=== PATIENT | male | born 1955 | race Caucasian/White ===

== ENCOUNTER 2016-07-02 21:02 | Observation (INO) | payer MEDICARE, OTHER ==
[~2016-07-02] VITALS: Ht 165.1 cm; Wt 61.1 kg
[2016-07-02 21:04] VITALS: BP 94/53; PULSE 99; RESP 21; TEMP 97.9; O2SAT 97
[2016-07-02] MEDS ORDERED: SODIUM CHLOR 0.9% 1000 ML INJ 1,000 ML IV SCH (21:09)
[2016-07-02 21:11] VITALS: BP 110/70; PULSE 75; RESP 18; O2SAT 99
[2016-07-02] MEDS ORDERED: SODIUM CHLORIDE 0.9% FLUSH 5 ML FLUSH IVF PRN (21:15)
[2016-07-02] MEDS ORDERED: DIPHTH/TETANUS/ACEL PERTUSSIS (BOOSTER) 0.5 ML VIAL/PFS IM ONE (21:15)
[2016-07-02 21:37] LABS: BASOPHIL % 0.6 % (0.0-2.0); EOSINOPHIL # 0.1 TH/MM3 (0-0.4); EOSINOPHIL % 1.2 % (0.0-4.0); HEMATOCRIT 40.4 % (39.0-51.0); HEMO FLAGS DIFF FINAL; LYMPH % 16.5 % (9.0-44.0); LYMPHOCYTE # 1.1 TH/MM3 (1.0-4.8); MEAN CELL VOLUME 94.6 FL (80.0-100.0); MEAN CORPUSCULAR HEMOGLOBIN 32.4 PG (27.0-34.0); MEAN CORPUSCULAR HGB CONC 34.3 % (32.0-36.0); MONO % 8.8 % (0.0-8.0); NEUT % 72.9 % (16.0-70.0); PLATELET COUNT 347 TH/MM3 (150-450); RED BLOOD COUNT 4.27 MIL/MM3 (4.50-5.90); WHITE BLOOD COUNT 6.8 TH/MM3 (4.0-11.0)
--- NOTE | 2016-07-02 21:38 | RADRPT ---
EXAM DATE/TIME: 07/02/2016 21:29 [facility] COMPARISON: No previous studies available for comparison. INDICATIONS : Syncopal episode today. MEDICAL HISTORY : None. SURGICAL HISTORY : None. ENCOUNTER: Initial ACUITY: 1 day PAIN SCORE: Non-responsive. LOCATION: Bilateral chest FINDINGS: A single view of the chest demonstrates the lungs to be symmetrically aerated without evidence of mas s, infiltrate or effusion. The cardiomediastinal contours are unremarkable. Osseous structures are intact. Left basilar atelectasis. CONCLUSION: Left basilar atelectasis. Yousif Degroot MD on July 02, 2016 at 21:37 Board Certified Radiologist. This report was verified electronically.
[2016-07-02 21:40] VITALS: BP 114/69; PULSE 82; RESP 18; O2SAT 97
[2016-07-02 21:46] LABS: APTT (PATIENT) 26.6 SEC (24.3-30.1); PROTHROMBIN TIME - PATIENT 10.8 SEC (9.8-11.6)
[2016-07-02 22:00] LABS: BICARBONATE 21.1 MEQ/L (21.0-32.0); POTASSIUM 3.3 MEQ/L (3.5-5.1)
--- NOTE | 2016-07-02 22:02 | RADRPT ---
EXAM DATE/TIME: 07/02/2016 21:33 [facility] COMPARISON: No previous studies available for comparison. INDICATIONS : Trauma; fall. RADIATION DOSE: 56.35 CTDIvol (mGy) MEDICAL HISTORY : Cerebral palsy SURGICAL HISTORY : None. ENCOUNTER: Initial ACUITY: 1 day PAIN SCALE: 4/10 LOCATION: cranial TECHNIQUE: Multiple contiguous axial images were obtained of the head. Using automated exposure control and adj ustment of the mA and/or kV according to patient size, radiation dose was kept as low as reasonably a chievable to obtain optimal diagnostic quality images. FINDINGS: There is no evidence of acute infarct, intracranial hemorrhage, or mass. There is mild ventriculomega ly with findings consistent with periventricular leukomalacia with volume loss of the white matter pa rticularly posteriorly. There is extensive calcification of the left globe. No fractures are seen. CONCLUSION: No acute disease. Yousif Degroot MD on July 02, 2016 at 21:59 Board Certified Radiologist. This report was verified electronically.
--- NOTE | 2016-07-02 22:05 | PD ---
HPI Chief Complaint: Fall Time Seen by Provider: 21:08 Travel History International Travel<30 days: No Contact w/Intl Traveler<30days: No Traveled to known affect area: No History of Present Illness HPI 61-year-old male presents status post fall sustaining a cut to the back of his head. He initially was hypotensive in route. Patient has had significant amount of alcohol and history is very limited. 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) Chemotherapy: No Congestive Heart Failure: No COPD: No Cerebrovascular Accident: No GERD: No Glaucoma: No Hepatitis: No Hiatal Hernia: No Hypertension: No Kidney Stones: No Musculoskeletal: Yes (pt has "mild cerebel palsy ".) Psychiatric: No Myocardial Infarction: No Radiation Therapy: No Renal Failure: No Seizures: No Sleep Apnea: No Thyroid Disease: No Ulcer: No ?: Past Surgical History Narrative Surgical Hip replacement on right by records AICD: No Genitourinary Surgery: No Pacemaker: No Social History Alcohol Use: Yes (everyday) Tobacco Use: Yes Substance Use: No Allergies-Medications (Allergen,Severity, Reaction): Coded Allergies: No Known Allergies (Verified Allergy, Unknown, 05/02/03) Review of Systems Except as stated in HPI: all other systems reviewed are Neg Physical Exam Narrative GENERAL: Well-nourished, well-developed patient. SKIN: Warm and dry. HEAD: Normocephalic and laceration to back of head EYES: No injection or drainage. ENT: No nasal drainage noted. NECK: Supple, trachea midline. CARDIOVASCULAR: Regular rate and rhythm RESPIRATORY: No increased effort. No accessory muscle use. GASTROINTESTINAL: Abdomen soft, non-tender, nondistended. NEUROLOGICAL: Awake, moves all extremities, slurred speech Data Data Last Documented VS Vital Signs Date Time Temp Pulse Resp B/P Pulse Ox O2 Delivery O2 Flow Rate FiO2 07/03/16 00:12 66 18 97/53 98 Room Air 07/02/16 21:04 97.9 Orders Basic Metabolic Panel (Bmp) (07/02/16 21:09) Complete Blood Count With Diff (07/02/16 21:09) Prothrombin Time / Inr (Pt) (07/02/16 21:09) Act Partial Throm Time (Ptt) (07/02/16 21:09) Alcohol (Ethanol) (07/02/16 21:09) Drug Screen, Random Urine (07/02/16 21:09) Chest, Single Ap (07/02/16 21:09) Ct Brain W/O Iv Contrast(Rout) (07/02/16 21:09) Ct Cerv Spine W/O Contrast (07/02/16 21:09) Iv Access Insert/Monitor (07/02/16 21:09) Ecg Monitoring (07/02/16 21:09) Oximetry (07/02/16 21:09) Nivf-Dar-Xveuzu (Booster) Inj (Boostrix (07/02/16 21:15) Sodium Chlor 0.9% 1000 Ml Inj (Ns 1000 M (07/02/16 21:09) Sodium Chloride 0.9% Flush (Ns Flush) (07/02/16 21:15) Urinalysis - C+S If Indicated (07/02/16 21:13) Lactic Acid (07/02/16 21:13) Electrocardiogram (07/02/16 12:10) Blood Culture (07/02/16 23:19) Sodium Chlor 0.9% 1000 Ml Inj (Ns 1000 M (07/02/16 23:30) Cath For Specimen (07/02/16 23:19) Ceftriaxone Inj (Rocephin Inj) (07/02/16 23:26) Azithromycin Inj (Zithromax Inj) (07/02/16 23:26) Hepatic Functional Panel (07/03/16 00:06) Admit Order (Ed Use Only) (07/03/16 00:17) Labs Laboratory Tests Test 07/02/16 07/02/16 07/02/16 21:14 22:20 23:45 White Blood Count 6.8 TH/MM3 Red Blood Count 4.27 MIL/MM3 Hemoglobin 13.8 GM/DL Hematocrit 40.4 % Mean Corpuscular Volume 94.6 FL Mean Corpuscular Hemoglobin 32.4 PG Mean Corpuscular Hemoglobin 34.3 % Concent Red Cell Distribution Width 14.0 % Platelet Count 347 TH/MM3 Mean Platelet Volume 7.3 FL Neutrophils (%) (Auto) 72.9 % Lymphocytes (%) (Auto) 16.5 % Monocytes (%) (Auto) 8.8 % Eosinophils (%) (Auto) 1.2 % Basophils (%) (Auto) 0.6 % Neutrophils # (Auto) 5.0 TH/MM3 Lymphocytes # (Auto) 1.1 TH/MM3 Monocytes # (Auto) 0.6 TH/MM3 Eosinophils # (Auto) 0.1 TH/MM3 Basophils # (Auto) 0.0 TH/MM3 CBC Comment DIFF FINAL Differential Comment Prothrombin Time 10.8 SEC Prothromb Time International 1.0 RATIO Ratio Activated Partial 26.6 SEC Thromboplast Time Sodium Level 138 MEQ/L Potassium Level 3.3 MEQ/L Chloride Level 102 MEQ/L Carbon Dioxide Level 21.1 MEQ/L Anion Gap 15 MEQ/L Blood Urea Nitrogen 9 MG/DL Creatinine 1.03 MG/DL Estimat Glomerular Filtration 73 ML/MIN Rate Random Glucose 127 MG/DL Calcium Level 7.7 MG/DL Ethyl Alcohol Level 230 MG/DL Total Bilirubin 0.2 MG/DL Direct Bilirubin 0.1 MG/DL Indirect Bilirubin 0.1 MG/DL Aspartate Amino Transf 15 U/L (AST/SGOT) Alanine Aminotransferase 16 U/L (ALT/SGPT) Alkaline Phosphatase 57 U/L Total Protein 6.2 GM/DL Albumin 3.3 GM/DL Lactic Acid Level 3.5 mmol/L Urine Color YELLOW Urine Turbidity CLEAR Urine pH 5.5 Urine Specific [place] 1.007 Urine Protein NEG mg/dL Urine Glucose (UA) NEG mg/dL Urine Ketones NEG mg/dL Urine Occult Blood NEG Urine Nitrite NEG Urine Bilirubin NEG Urine Urobilinogen LESS THAN 2.0 MG/DL Urine Leukocyte Esterase NEG Urine RBC 1 /hpf Urine WBC 1 /hpf Urine Squamous Epithelial <1 /hpf Cells Urine Hyaline Casts 1 /lpf Microscopic Urinalysis Comment CULT NOT INDICATED Urine Opiates Screen NEG Urine Barbiturates Screen NEG Urine Amphetamines Screen NEG Urine Benzodiazepines Screen NEG Urine Cocaine Screen NEG Urine Cannabinoids Screen POS MDM Medical Decision Making Medical Screen Exam Complete: Yes Emergency Medical Condition: Yes Medical Record Reviewed: Yes (past history confirmed on prior records) Interpretation(s) EKG is sinus rhythm without STEMI criteria but limited with underlying artifact CBC & BMP Diagram 07/02/16 21:14 Last [address] 07/02/16 2134 Signed Impressions: Service Date/Time: Saturday, July 02, 2016 21:33 - CONCLUSION: No acute disease. Yousif Degroot MD Chest X-Ray 07/02/162108 Signed Impressions: Service Date/Time: Saturday, July 02, 2016 21:29 - CONCLUSION: Left basilar atelectasis. Yousif Degroot MD Cervical Spine CT 07/02/162108 Signed Impressions: Service Date/Time: Saturday, July 02, 2016 21:33 - CONCLUSION: Multilevel degenerative changes are seen without evidence of acute fracture or listhesis. Emphysema. Yousif Degroot MD Differential Diagnosis Intracranial injury, fracture, anemia, UTI, alcohol abuse, coingestion Narrative Course Will check blood work, imaging and dose with IV fluids and reevaluate Given elevated lactate and hypotension will place on Rocephin and azithromycin for possible left base infiltrate versus atelectasis given everything else shows no signs of infection 97/53 on recheck, will repeat fluids and admit, patient denies complaints and apologetic Sepsis Criteria SIRS Criteria (2 or more): Heart rate over 90, RR > 20 or PaCO2 < 32 Severe Sepsis (+one): Lactate >2 Physician Communication Physician Communication dr vazquez agrees to observation Diagnosis Primary Impression: Fall Qualified Code: W19.XXXA - Fall, initial encounter Additional Impressions: Alcohol intoxication Qualified Code: F10.120 - Alcohol intoxication, uncomplicated Lactic acidosis Hypocalcemia Hypokalemia Hypotension Qualified Code: I95.9 - Hypotension, unspecified hypotension type Admitting Information Admitting Physician Requests: Observation Yudi Gonsales MD Jul 02, 2016 22:05
--- NOTE | 2016-07-02 22:07 | RADRPT ---
EXAM DATE/TIME: 07/02/2016 21:33 [facility] COMPARISON: No previous studies available for comparison. INDICATIONS : Trauma; fall. RADIATION DOSE: 36.35 CTDIvol (mGy) MEDICAL HISTORY : Cerebral palsy SURGICAL HISTORY : None. ENCOUNTER: Initial ACUITY: 1 day PAIN SCALE: 5/10 LOCATION: neck TECHNIQUE: Volumetric scanning of the cervical spine was performed. Multiplanar reconstructions in the sagittal, coronal and oblique axial planes were performed. Using automated exposure control and adjustment o f the mA and/or kV according to patient size, radiation dose was kept as low as reasonably achievable to obtain optimal diagnostic quality images. FINDINGS: Normal alignment. No prevertebral soft tissue swelling or compression deformity. Odontoid process is intact. Lateral masses of C1 align properly with C2. There is moderate disc space narrowing at C4-5 t hrough C6-7 with multilevel osteophytosis and facet hypertrophic changes. No fractures are seen. Mult ilevel uncovertebral hypertrophy identified. There is severe foraminal stenosis at C3-4 on the right and moderate foraminal stenosis on the left. At C4-5 there is severe right, moderate left foraminal n arrowing. At C5-6 there is severe bilateral foraminal stenosis. There are emphysematous changes noted . There is moderate canal stenosis at C3-4 and C4-5 with severe canal narrowing at C5-6. CONCLUSION: Multilevel degenerative changes are seen without evidence of acute fracture or listhesis. Emphysema. Yousif Degroot MD on July 02, 2016 at 22:04 Board Certified Radiologist. This report was verified electronically.
--- NOTE | 2016-07-02 22:40 | PD ---
Physical Exam Date Seen by Provider: Jul 02, 2016 Narrative For full history and physical examination please see previous provider's note. I was asked to repair laceration to patient's scalp. Data Data Last Documented VS Vital Signs Date Time Temp Pulse Resp B/P Pulse Ox O2 Delivery O2 Flow Rate FiO2 07/02/16 21:40 82 18 114/69 97 Room Air 07/02/16 21:04 97.9 Orders Basic Metabolic Panel (Bmp) (07/02/16 21:09) Complete Blood Count With Diff (07/02/16 21:09) Prothrombin Time / Inr (Pt) (07/02/16 21:09) Act Partial Throm Time (Ptt) (07/02/16 21:09) Alcohol (Ethanol) (07/02/16 21:09) Drug Screen, Random Urine (07/02/16 21:09) Chest, Single Ap (07/02/16 21:09) Ct Brain W/O Iv Contrast(Rout) (07/02/16 21:09) Ct Cerv Spine W/O Contrast (07/02/16 21:09) Iv Access Insert/Monitor (07/02/16 21:09) Ecg Monitoring (07/02/16 21:09) Oximetry (07/02/16 21:09) Ztly-Kku-Szynzf (Booster) Inj (Boostrix (07/02/16 21:15) Sodium Chlor 0.9% 1000 Ml Inj (Ns 1000 M (07/02/16 21:09) Sodium Chloride 0.9% Flush (Ns Flush) (07/02/16 21:15) Urinalysis - C+S If Indicated (07/02/16 21:13) Lactic Acid (07/02/16 21:13) Electrocardiogram (07/02/16 12:10) Labs Laboratory Tests Test 07/02/16 21:14 White Blood Count 6.8 TH/MM3 Red Blood Count 4.27 MIL/MM3 Hemoglobin 13.8 GM/DL Hematocrit 40.4 % Mean Corpuscular Volume 94.6 FL Mean Corpuscular Hemoglobin 32.4 PG Mean Corpuscular Hemoglobin 34.3 % Concent Red Cell Distribution Width 14.0 % Platelet Count 347 TH/MM3 Mean Platelet Volume 7.3 FL Neutrophils (%) (Auto) 72.9 % Lymphocytes (%) (Auto) 16.5 % Monocytes (%) (Auto) 8.8 % Eosinophils (%) (Auto) 1.2 % Basophils (%) (Auto) 0.6 % Neutrophils # (Auto) 5.0 TH/MM3 Lymphocytes # (Auto) 1.1 TH/MM3 Monocytes # (Auto) 0.6 TH/MM3 Eosinophils # (Auto) 0.1 TH/MM3 Basophils # (Auto) 0.0 TH/MM3 CBC Comment DIFF FINAL Differential Comment Prothrombin Time 10.8 SEC Prothromb Time International 1.0 RATIO Ratio Activated Partial 26.6 SEC Thromboplast Time Sodium Level 138 MEQ/L Potassium Level 3.3 MEQ/L Chloride Level 102 MEQ/L Carbon Dioxide Level 21.1 MEQ/L Anion Gap 15 MEQ/L Blood Urea Nitrogen 9 MG/DL Creatinine 1.03 MG/DL Estimat Glomerular Filtration 73 ML/MIN Rate Random Glucose 127 MG/DL Calcium Level 7.7 MG/DL Ethyl Alcohol Level 230 MG/DL MDM Medical Record Reviewed: Yes Supervised Visit with PETE: Yes Procedures Procedure Narrative LACERATION LOCATION: Left scalp LENGTH: 1 1/2 cm NUMBER OF STITCHES/LEIA: 3 leia REPAIR: The area of the laceration was prepped with Betadine and sterilely draped. The wound was copiously irrigated and explored without evidence of foreign body, tendon injury or neurovascular injury. The wound was closed using leia. This was a 1 layer repair. The patient was advised to keep the dressing clean and dry. Patient tolerated the procedure well. Gertrudis Harvey Jul 02, 2016 22:40
[2016-07-02] MEDS ORDERED: cefTRIAXone INJ 2,000 MG in SODIUM CHLORIDE 0.9% INJ 100 ML IV STA (23:26)
[2016-07-02] MEDS ORDERED: AZITHROMYCIN INJ 500 MG in SODIUM CHLOR 0.9% 250 ML INJ 250 ML IV STA (23:26)
[2016-07-02] MEDS ORDERED: SODIUM CHLOR 0.9% 1000 ML INJ 1,000 ML IV ONE (23:30)
[2016-07-03] VITALS (7 sets, daily range): BP systolic 84–124; BP diastolic 53–77; PULSE 58–75; RESP 17–18; TEMP 96.4–98.1; O2SAT 93–98
[2016-07-03 00:01] LABS: BLOOD, URINE NEG (NEG); GLUCOSE,URINE NEG (NEG); HYALINE CAST, URINE 1 /lpf (RARE); KETONE, URINE NEG (NEG); NITRITE,URINE NEG (NEG); PH, URINE 5.5 (5.0-8.5); SQUAMOUS EPITHELIAL CELL URINE <1 /hpf (0-5); URINE COLOR YELLOW (YELLW/STRAW)
[2016-07-03 00:03] LABS: COMMENT (UR) CULT NOT INDICATED; CULTURE IF INDICATED CULT NOT INDICATED
[2016-07-03 00:07] LABS: AMPHETAMINE, URINE NEG (NEG); BARBITURATES, URINE NEG (NEG); COCAINE, URINE NEG (NEG)
[2016-07-03] MEDS ORDERED: ONDANSETRON HCL 4 MG/2 ML VIAL IVP PRN (00:30)
[2016-07-03] MEDS ORDERED: CALCIUM GLUCONATE 10% 1 GM/10 ML VIAL IV PUSH ONE (00:30)
[2016-07-03] MEDS ORDERED: HALOPERIDOL LACTATE 5 MG/ML AMP IM PRN (00:30)
[2016-07-03] MEDS ORDERED: ACETAMINOPHEN 325 MG TAB PO PRN (00:30)
[2016-07-03] MEDS ORDERED: SODIUM CHLORIDE 0.9% FLUSH 5 ML FLUSH FLUSH PRN (00:30)
[2016-07-03] MEDS ORDERED: BISACODYL 10 MG SUPP PR PRN (00:30)
[2016-07-03] MEDS ORDERED: LORazepam 2 MG TAB PO PRN (00:30)
[2016-07-03] MEDS ORDERED: POTASSIUM CHLORIDE 20 MEQ CONTROLLED RELEASE TAB PO ONE (00:30)
[2016-07-03] MEDS ORDERED: FLUMAZENIL 0.5 MG/5 ML VIAL IV PUSH PRN (00:30)
[2016-07-03] MEDS ORDERED: LORazepam 2 MG/ML VIAL IV PUSH PRN ×4 (00:30)
[2016-07-03] MEDS ORDERED: LORazepam 1 MG TAB PO PRN (00:30)
[2016-07-03] MEDS ORDERED: CALCIUM GLUCONATE INJ 1 GM in SODIUM CHLORIDE 0.9% INJ 100 ML IV ONE (00:45)
[2016-07-03 01:45] LABS: INDIRECT BILIRUBIN 0.1 MG/DL (0.0-0.8); TOTAL BILIRUBIN ADULT 0.2 MG/DL (0.2-1.0)
[2016-07-03] MEDS: MULTIVITAMIN INJ 10 ML, FOLIC ACID INJ 1 MG in SODIUM CHLORID 0.9% 500 ML INJ 500 ML IV SCH (02:03)
--- NOTE | 2016-07-03 02:49 | HHI.HP ---
[facility] Horacio Verma M.D. Admission Diagnosis lactic acidosis, fall Diagnoses: (1) Fall Diagnosis: Principal (2) Alcohol abuse Diagnosis: Principal (3) Alcohol intoxication Diagnosis: Principal (4) Lactic acidosis Diagnosis: Principal (5) Hypocalcemia Diagnosis: Principal (6) Hypokalemia Diagnosis: Principal Travel History International Travel<30 Days: No Contact w/Intl Traveler <30 Da: No Traveled to Known Affected Are: No History of Present Illness This is a 61-year-old male with a PMH of Alcohol Abuse, Cerebral Palsy, h/o WPW/ SVT and Tobacco Abuse who was brought to the ER by EMS after fall w/ head injury while intoxicated. Per report, neighbor called EMS after pt sustained fall and hit his head. Pt unable to provide much history as acutely intoxicated. On arrival, BP 94/53, HR 99, O2 sat 97% on RA, Afebrile, s/p IVF w / BP 114/69, HR 82. CBC essentially unremarkable. K+ 3.3. GFR 73. Lactic Acid 3.5. Calcium 7.7. U/a negative. Urine Drug Screen positive for Marijuana. Alcohol 230. CT Head with no acute findings. CT C-spine with multilevel degenerative changes, no acute fracture. CXR with left basilar atelectasis. Review of Systems Except as stated in HPI: all other systems reviewed are Neg ROS: 14 point review of systems otherwise negative. Past Family Social History Past Medical History PMH: Alcohol Abuse, Cerebral Palsy, h/o WPW/SVT and Tobacco Abuse Past Surgical History PAST SURGICAL HISTORY: Hip Replacement Allergies: Coded Allergies: No Known Allergies (Verified Allergy, Unknown, 05/02/03) Family History PAST FAMILY HISTORY: Reviewed. No h/o DM or CAD Social History PAST SOCIAL HISTORY: Drinks daily, positive for tobacco abuse. Urine Drug screen positive for marijuana. Physical Exam Vital Signs Vital Signs Date Time Temp Pulse Resp B/P Pulse Ox O2 Delivery O2 Flow Rate FiO2 07/03/16 02:34 96.4 67 18 84/65 97 07/03/16 00:12 66 18 97/53 98 Room Air 07/02/16 21:40 82 18 114/69 97 Room Air 07/02/16 21:11 75 18 110/70 99 Room Air 07/02/16 21:04 97.9 99 21 94/53 97 Physical Exam PE: GENERAL: Middle-aged male in no acute distress. Acutely intoxicated. HEENT: PERRLA, EOMI. No scleral icterus or conjunctival pallor. No lid lag or facial droop. Posterior head laceration. CARDIOVASCULAR: Regular rate and rhythm. No obvious murmurs to auscultation. No chest tenderness to palpation. RESPIRATORY: No obvious rhonchi or wheezing. Clear to auscultation. Breath sounds equal bilaterally. GASTROINTESTINAL: Abdomen soft, non-tender, nondistended. BS normal. MUSCULOSKELETAL: Extremities without clubbing, cyanosis, or edema. No obvious deformities. NEUROLOGICAL: Intoxicated, arousable. No focal neurologic deficits. Moving both upper and lower extremities spontaneously. Laboratory Laboratory Tests Test 07/02/16 07/02/16 07/02/16 21:14 22:20 23:45 White Blood Count 6.8 Red Blood Count 4.27 Hemoglobin 13.8 Hematocrit 40.4 Mean Corpuscular Volume 94.6 Mean Corpuscular Hemoglobin 32.4 Mean Corpuscular Hemoglobin 34.3 Concent Red Cell Distribution Width 14.0 Platelet Count 347 Mean Platelet Volume 7.3 Neutrophils (%) (Auto) 72.9 Lymphocytes (%) (Auto) 16.5 Monocytes (%) (Auto) 8.8 Eosinophils (%) (Auto) 1.2 Basophils (%) (Auto) 0.6 Neutrophils # (Auto) 5.0 Lymphocytes # (Auto) 1.1 Monocytes # (Auto) 0.6 Eosinophils # (Auto) 0.1 Basophils # (Auto) 0.0 CBC Comment DIFF FINAL Differential Comment Prothrombin Time 10.8 Prothromb Time International 1.0 Ratio Activated Partial 26.6 Thromboplast Time Sodium Level 138 Potassium Level 3.3 Chloride Level 102 Carbon Dioxide Level 21.1 Anion Gap 15 Blood Urea Nitrogen 9 Creatinine 1.03 Estimat Glomerular Filtration 73 Rate Random Glucose 127 Calcium Level 7.7 Ethyl Alcohol Level 230 Total Bilirubin 0.2 Direct Bilirubin 0.1 Indirect Bilirubin 0.1 Aspartate Amino Transf 15 (AST/SGOT) Alanine Aminotransferase 16 (ALT/SGPT) Alkaline Phosphatase 57 Total Protein 6.2 Albumin 3.3 Lactic Acid Level 3.5 Urine Color YELLOW Urine Turbidity CLEAR Urine pH 5.5 Urine Specific [place] 1.007 Urine Protein NEG Urine Glucose (UA) NEG Urine Ketones NEG Urine Occult Blood NEG Urine Nitrite NEG Urine Bilirubin NEG Urine Urobilinogen LESS THAN 2.0 Urine Leukocyte Esterase NEG Urine RBC 1 Urine WBC 1 Urine Squamous Epithelial <1 Cells Urine Hyaline Casts 1 Microscopic Urinalysis Comment CULT NOT INDICATED Urine Opiates Screen NEG Urine Barbiturates Screen NEG Urine Amphetamines Screen NEG Urine Benzodiazepines Screen NEG Urine Cocaine Screen NEG Urine Cannabinoids Screen POS Date/Time Procedure Status Source Growth 07/02/16 23:50 Aerobic Blood Culture Received Blood Peripheral Pending 07/02/16 23:50 Anaerobic Blood Culture Received Blood Peripheral Pending Result Diagram: 07/02/16211307/02/162113 Assessment and Plan Problem List: (1) Fall ICD Code: W19.XXXA Status: Acute (2) Alcohol abuse ICD Code: F10.10 Status: Acute (3) Alcohol intoxication ICD Code: F10.129 Status: Acute (4) Lactic acidosis ICD Code: E87.2 Status: Acute (5) Hypokalemia ICD Code: E87.6 Status: Acute (6) Hypocalcemia ICD Code: E83.51 Status: Acute Assessment and Plan A/P: 1. Fall: s/p fall while intoxicated w/ reported head trauma, no LOC, CT Head w / no acute findings, CT C-Spine w/ no acute fracture, images reviewed by me. 2. Alcohol Abuse: w/ Acute Alcohol Intoxication. Alcohol 290. Seizure Precautions, CIWA, MVT/Thiamine/Folate replacement. 3. Lactic Acidosis: Lactate 3.5, likely secondary to dehydration/alcohol abuse , no signs of infection to suspect sepsis. Afebrile, no leukocytosis. IVF, repeat Lactic Acid in am. 4. Hypokalemia: K+ 3.3, will replace and recheck in am. 5. Hypocalcemia: Ca 7.7, will replace, recheck labs in am. 6. DVT Prophylaxis: SCD/Teds. 7. Social work for d/c planning as needed. 8. Case discussed w/ ER physician at length. Polly Campos MD Jul 03, 2016 02:49
[2016-07-03] MEDS: THIAMINE INJ 100 MG in SODIUM CHLORIDE 0.9% INJ 100 ML IV SCH (06:36)
[2016-07-03 07:34] LABS: AUTOMATED NEUTROPHIL # 4.2 TH/MM3 (1.8-7.7); BASOPHIL % 0.8 % (0.0-2.0); EOSINOPHIL # 0.1 TH/MM3 (0-0.4); EOSINOPHIL % 2.1 % (0.0-4.0); HEMATOCRIT 39.8 % (39.0-51.0); HEMO FLAGS DIFF FINAL; LYMPH % 20.6 % (9.0-44.0); LYMPHOCYTE # 1.3 TH/MM3 (1.0-4.8); MEAN CORPUSCULAR HEMOGLOBIN 32.5 PG (27.0-34.0); MEAN CORPUSCULAR HGB CONC 34.2 % (32.0-36.0); MONO % 9.7 % (0.0-8.0); NEUT % 66.8 % (16.0-70.0); PLATELET COUNT 299 TH/MM3 (150-450); RED CELL DISTRIBUTION WIDTH 13.8 % (11.6-17.2); WHITE BLOOD COUNT 6.3 TH/MM3 (4.0-11.0)
[2016-07-03 08:13] LABS: ALKALINE PHOSPHATASE 63 U/L (45-117); ALT (GPT) 16 U/L (12-78); ANION GAP 11 MEQ/L (5-15); AST (GOT) 16 U/L (15-37); BICARBONATE 21.9 MEQ/L (21.0-32.0); BLOOD UREA NITROGEN 6 MG/DL (7-18); CHLORIDE 111 MEQ/L (98-107); GLOMERULAR FILTRATION RATE 96 ML/MIN (>89); SODIUM (NA) 144 MEQ/L (136-145); TOTAL BILIRUBIN ADULT 0.2 MG/DL (0.2-1.0)
[2016-07-03] MEDS: SODIUM CHLORIDE 0.9% FLUSH 5 ML FLUSH FLUSH SCH ×2 (08:27→22:07)
--- NOTE | 2016-07-03 15:56 | EKG ---
Date Performed: 07/02/2016 Time Performed: 21:10:53 PTAGE: 61 years EKG: Sinus rhythm WITH FIRST DEGREE AV BLOCK T-WAVES IN INFERIOR LEADS HAS IMPROVED ABNORMAL ECG PREVIOUS TRACING : 05/28/2003 05.31 DOCTOR: Harjeet Avalos Interpretating Date/Time 07/03/2016 15:55:53
[2016-07-03] MEDS: REMOVE OLD NICODERM (NICOTINE) PATCH TD SCH (21:00)
[2016-07-03] MEDS: NICOTINE 14 MG/24 HR PATCH TD SCH (22:07)
[2016-07-04] MEDS: MULTIVITAMIN INJ 10 ML, FOLIC ACID INJ 1 MG in SODIUM CHLORID 0.9% 500 ML INJ 500 ML IV SCH (00:10)
[2016-07-04] MEDS: THIAMINE INJ 100 MG in SODIUM CHLORIDE 0.9% INJ 100 ML IV SCH (04:24)
[2016-07-04 08:00] VITALS: BP 109/73; PULSE 65; RESP 18; TEMP 97.1; O2SAT 96
[2016-07-04 08:30] LABS: BICARBONATE 26.6 MEQ/L (21.0-32.0); POTASSIUM 4.2 MEQ/L (3.5-5.1)
[2016-07-04] MEDS: NICOTINE 14 MG/24 HR PATCH TD SCH (08:40)
[2016-07-04] MEDS: SODIUM CHLORIDE 0.9% FLUSH 5 ML FLUSH FLUSH SCH ×2 (08:40→21:41)
[2016-07-04 12:00] VITALS: BP 112/71; PULSE 63; RESP 18; TEMP 96.9; O2SAT 94
[2016-07-04 16:00] VITALS: BP 133/83; PULSE 61; RESP 18; TEMP 96.9; O2SAT 95
--- NOTE | 2016-07-04 18:46 | HHI.PR ---
Subjective Remarks Follow up on status post fall and alcoholic intoxication Patient resting in bed stated he feels better but he still wobbly when he tried to go to the bathroom I discussed with the nurse, will consult PT OT Objective Vitals Vital Signs Date Time Temp Pulse Resp B/P Pulse Ox O2 Delivery O2 Flow Rate FiO2 07/04/16 18:00 16 07/04/16 16:00 96.9 61 18 133/83 95 07/04/16 12:00 96.9 63 18 112/71 94 07/04/16 08:00 97.1 65 18 109/73 96 07/03/16 23:10 96.8 58 17 118/65 94 07/03/16 20:00 97.5 66 17 105/70 93 I/O 07/03/16 07/03/16 07/03/16 07/04/16 07/04/16 07/04/16 07:00 15:00 23:00 07:00 15:00 23:00 Intake Total 1920 ml 480 ml 720 ml Output Total 1200 ml 1000 ml 500 ml 500 ml Balance -1200 ml 920 ml -20 ml 220 ml Intake Oral 1920 ml 480 ml 720 ml Output Urine Total 1200 ml 1000 ml 500 ml 500 ml # Voids 3 1 # Bowel Movements 2 0 1 Result Diagram: 07/03/16 0716 07/04/16 0716 Objective Remarks GENERAL: This is a well-nourished, well-developed patient, in no apparent distress. SKIN: No rashes, warm and dry HEAD: Atraumatic. Normocephalic. EYES: Pupils equal round and reactive. Extraocular motions intact. No scleral icterus. ENT: Nose without bleeding, or drainage, Airway patent. NECK: Trachea midline. Supple CARDIOVASCULAR: Regular rate and rhythm without murmurs, gallops, or rubs. RESPIRATORY: Fair air entry bilaterally. No wheezes, rales, or rhonchi. GASTROINTESTINAL: Abdomen soft, non-tender, nondistended. Positive bowel sounds MUSCULOSKELETAL: Extremities without clubbing, cyanosis, or edema. Pedal pulses appreciated NEUROLOGICAL: Awake and alert. Moves all extremity. Normal speech.no focal neurological deficit A/P Problem List: (1) Fall ICD Code: W19.XXXA Status: Acute (2) Alcohol abuse ICD Code: F10.10 Status: Acute (3) Alcohol intoxication ICD Code: F10.129 Status: Acute (4) Lactic acidosis ICD Code: E87.2 Status: Acute (5) Hypokalemia ICD Code: E87.6 Status: Acute (6) Hypocalcemia ICD Code: E83.51 Status: Acute Assessment and Plan 1. Fall: s/p fall while intoxicated w/ reported head trauma, no LOC, CT Head w / no acute findings, CT C-Spine w/ no acute fracture, 2. Alcohol Abuse: w/ Acute Alcohol Intoxication. Alcohol 290. Seizure Precautions, CIWA, MVT/Thiamine/Folate replacement. Consult PT OT 3. Lactic Acidosis: Resolved, initially Lactate 3.5, likely secondary to dehydration/alcohol abuse, no signs of infection to suspect sepsis. Afebrile, no leukocytosis. IVF, 4. Hypokalemia: Status post replacement, monitor BMP and replace as needed 5. Hypocalcemia: Ca 7.7, discuss replacement recheck labs in am. 6. DVT Prophylaxis: SCD/Teds. Discharge Planning In a.m. if stable Problem Qualifiers (1) Fall: Qualified Code: W19.XXXA - Fall, initial encounter (2) Alcohol intoxication: Qualified Code: F10.120 - Alcohol intoxication, uncomplicated Tonya Fnuk MD Jul 04, 2016 18:46
[2016-07-04 20:00] VITALS: BP 142/82; PULSE 61; RESP 18; TEMP 97.2; O2SAT 97
[2016-07-04] MEDS: REMOVE OLD NICODERM (NICOTINE) PATCH TD SCH (21:00)
[2016-07-05] VITALS: BP 142/87; PULSE 61; RESP 17; TEMP 97.4; O2SAT 96
[2016-07-05] MEDS: THIAMINE INJ 100 MG in SODIUM CHLORIDE 0.9% INJ 100 ML IV SCH (01:56)
[2016-07-05] MEDS: MULTIVITAMIN INJ 10 ML, FOLIC ACID INJ 1 MG in SODIUM CHLORID 0.9% 500 ML INJ 500 ML IV SCH (01:56)
[2016-07-05 04:00] VITALS: BP 121/73; PULSE 67; RESP 16; TEMP 96.7; O2SAT 97
[2016-07-05 08:00] VITALS: BP 110/71; PULSE 71; RESP 18; TEMP 96.5; O2SAT 97
[2016-07-05] MEDS ORDERED: VITA100T2 PO (08:38)
[2016-07-05] MEDS ORDERED: FOLI5CAP PO (08:38)
--- NOTE | 2016-07-05 08:41 | HHI.PR ---
Subjective Remarks Patient is doing well, feeling more stable today we'll proceed with discharge, he was advised about alcohol abstinence Objective Vitals Vital Signs Date Time Temp Pulse Resp B/P Pulse Ox O2 Delivery O2 Flow Rate FiO2 07/05/16 04:00 96.7 67 16 121/73 97 07/05/16 00:00 97.4 61 17 142/87 96 07/04/16 20:00 97.2 61 18 142/82 97 07/04/16 18:00 16 07/04/16 16:00 96.9 61 18 133/83 95 07/04/16 12:00 96.9 63 18 112/71 94 I/O 07/04/16 07/04/16 07/04/16 07/05/16 07/05/16 07/05/16 07:00 15:00 23:00 07:00 15:00 23:00 Intake Total 480 ml 960 ml 240 ml Output Total 500 ml 1100 ml Balance -20 ml -140 ml 240 ml Intake Oral 480 ml 960 ml 240 ml Output Urine Total 500 ml 1100 ml # Voids 1 2 # Bowel Movements 0 1 Result Diagram: 07/03/16 0716 07/04/16 0716 Objective Remarks GENERAL: This is a well-nourished, well-developed patient, in no apparent distress. SKIN: No rashes, warm and dry HEAD: Atraumatic. Normocephalic. EYES: Pupils equal round and reactive. Extraocular motions intact. No scleral icterus. ENT: Nose without bleeding, or drainage, Airway patent. NECK: Trachea midline. Supple CARDIOVASCULAR: Regular rate and rhythm without murmurs, gallops, or rubs. RESPIRATORY: Fair air entry bilaterally. No wheezes, rales, or rhonchi. GASTROINTESTINAL: Abdomen soft, non-tender, nondistended. Positive bowel sounds MUSCULOSKELETAL: Extremities without clubbing, cyanosis, or edema. Pedal pulses appreciated NEUROLOGICAL: Awake and alert. Moves all extremity. Normal speech.no focal neurological deficit A/P Problem List: (1) Fall ICD Code: W19.XXXA Status: Acute (2) Alcohol abuse ICD Code: F10.10 Status: Acute (3) Alcohol intoxication ICD Code: F10.129 Status: Acute (4) Lactic acidosis ICD Code: E87.2 Status: Acute (5) Hypokalemia ICD Code: E87.6 Status: Acute (6) Hypocalcemia ICD Code: E83.51 Status: Acute Assessment and Plan 1. Fall: s/p fall while intoxicated w/ reported head trauma, no LOC, CT Head w / no acute findings, CT C-Spine w/ no acute fracture, 2. Alcohol Abuse: w/ Acute Alcohol Intoxication. Alcohol 290. Seizure Precautions, CIWA, MVT/Thiamine/Folate replacement. Consult PT OT 3. Lactic Acidosis: Resolved, initially Lactate 3.5, likely secondary to dehydration/alcohol abuse, no signs of infection to suspect sepsis. Afebrile, no leukocytosis. IVF, 4. Hypokalemia: Status post replacement, monitor BMP and replace as needed 5. Hypocalcemia: Ca 7.7, discuss replacement recheck labs in am. 6. DVT Prophylaxis: SCD/Teds. Discharge Planning Discharge home today Problem Qualifiers (1) Fall: Qualified Code: W19.XXXA - Fall, initial encounter (2) Alcohol intoxication: Qualified Code: F10.120 - Alcohol intoxication, uncomplicated Tonya Funk MD Jul 05, 2016 08:41
--- NOTE | 2016-07-05 08:42 | HHI.DS ---
Discharge Summary Admission Date Jul 03, 2016 at 00:18 Discharge Date: Jul 05, 2016 Admitting Diagnosis lactic acidosis, fall (1) Fall ICD Code: W19.XXXA (2) Alcohol abuse ICD Code: F10.10 (3) Alcohol intoxication ICD Code: F10.129 (4) Lactic acidosis ICD Code: E87.2 (5) Hypokalemia ICD Code: E87.6 (6) Hypocalcemia ICD Code: E83.51 Procedures None Brief History - From Admission This is a 61-year-old male with a PMH of Alcohol Abuse, Cerebral Palsy, h/o WPW/ SVT and Tobacco Abuse who was brought to the ER by EMS after fall w/ head injury while intoxicated. Per report, neighbor called EMS after pt sustained fall and hit his head. Pt unable to provide much history as acutely intoxicated. On arrival, BP 94/53, HR 99, O2 sat 97% on RA, Afebrile, s/p IVF w / BP 114/69, HR 82. CBC essentially unremarkable. K+ 3.3. GFR 73. Lactic Acid 3.5. Calcium 7.7. U/a negative. Urine Drug Screen positive for Marijuana. Alcohol 230. CT Head with no acute findings. CT C-spine with multilevel degenerative changes, no acute fracture. CXR with left basilar atelectasis. CBC/BMP: 07/03/16 0716 07/04/16 0716 Significant Findings Laboratory Tests Test 07/02/16 07/02/16 07/02/16 07/03/16 21:14 22:20 23:45 07:16 Red Blood Count 4.27 MIL/MM3 4.20 MIL/MM3 (4.50-5.90) (4.50-5.90) Neutrophils (%) (Auto) 72.9 % (16.0-70.0) Monocytes (%) (Auto) 8.8 % (0.0-8.0) 9.7 % (0.0-8.0) Potassium Level 3.3 MEQ/L (3.5-5.1) Estimat Glomerular Filtration 73 ML/MIN (>89) Rate Random Glucose 127 MG/DL (74-106) Calcium Level 7.7 MG/DL 8.0 MG/DL (8.5-10.1) (8.5-10.1) Ethyl Alcohol Level 230 MG/DL (0-5) Total Protein 6.2 GM/DL 6.0 GM/DL (6.4-8.2) (6.4-8.2) Albumin 3.3 GM/DL 3.0 GM/DL (3.4-5.0) (3.4-5.0) Lactic Acid Level 3.5 mmol/L 2.1 mmol/L (0.4-2.0) (0.4-2.0) Urine Cannabinoids Screen POS (NEG) Chloride Level 111 MEQ/L (98-107) Blood Urea Nitrogen 6 MG/DL (7-18) Test 07/04/16 07:16 Chloride Level 109 MEQ/L (98-107) Estimat Glomerular Filtration 84 ML/MIN (>89) Rate Calcium Level 8.4 MG/DL (8.5-10.1) PE at Discharge GENERAL: This is a well-nourished, well-developed patient, in no apparent distress. SKIN: No rashes, warm and dry HEAD: Atraumatic. Normocephalic. EYES: Pupils equal round and reactive. Extraocular motions intact. No scleral icterus. ENT: Nose without bleeding, or drainage, Airway patent. NECK: Trachea midline. Supple CARDIOVASCULAR: Regular rate and rhythm without murmurs, gallops, or rubs. RESPIRATORY: Fair air entry bilaterally. No wheezes, rales, or rhonchi. GASTROINTESTINAL: Abdomen soft, non-tender, nondistended. Positive bowel sounds MUSCULOSKELETAL: Extremities without clubbing, cyanosis, or edema. Pedal pulses appreciated NEUROLOGICAL: Awake and alert. Moves all extremity. Normal speech.no focal neurological deficit Hospital Course 61 years old male admitted for having a s/p fall while intoxicated w/ reported head trauma, no LOC, CT Head w/ no acute findings, CT C-Spine w/ no acute fracture, Alcohol Abuse: w/ Acute Alcohol Intoxication. Alcohol 290. Seizure Precautions, CIWA, MVT/Thiamine/Folate replacement. Consult PT OT Lactic Acidosis: Resolved, initially Lactate 3.5, likely secondary to dehydration/alcohol abuse, no signs of infection to suspect sepsis. Afebrile, no leukocytosis. IVF, Hypokalemia: Placed in monitored Hypocalcemia place and monitor DVT Prophylaxis: SCD/Teds. Pt Condition on Discharge: Fair Discharge Disposition: Discharge Home Discharge Time: <= 30 minutes Discharge Instructions DIET: Follow Instructions for: Heart Healthy Diet Activities you can perform: Weight Bearing as [place] Other Activity Instructions: Fall precaution New Medications: Folic Acid (Folic Acid) 5 Mg Cap 1 MG PO DAILY Nutritional Supplement #30 Ref 0 CAP Thiamine (Vitamin B-1) 100 Mg Tab 100 MG PO DAILY replacement #30 TAB Tonya Funk MD Jul 05, 2016 08:42
[2016-07-05] MEDS: NICOTINE 14 MG/24 HR PATCH TD SCH (09:44)
[2016-07-05] MEDS: SODIUM CHLORIDE 0.9% FLUSH 5 ML FLUSH FLUSH SCH (09:44)
[2016-07-05 12:00] VITALS: BP 130/70; PULSE 61; RESP 18; TEMP 97.8; O2SAT 98
[2016-07-06] MEDS ORDERED: THIAMINE HCL 100 MG TAB PO SCH (09:00)
== END 2016-07-05 13:05 | disposition home or self-care (01) ==
LOC: NEPE 21:02 → NEDA 07-03 00:18 → N06B 07-03 01:40
PROVIDERS: ADMIT Hospitalist; ATTEND Hospitalist
DX: S01.01XA Laceration without foreign body of scalp, initial encounter (principal); F10.120 Alcohol abuse with intoxication, uncomplicated; Y90.7 Blood alcohol level of 200-239 mg/100 ml; H54.42 Blindness, left eye, normal vision right eye; G80.9 Cerebral palsy, unspecified; E78.00 Pure hypercholesterolemia, unspecified; I95.9 Hypotension, unspecified; I47.1 Supraventricular tachycardia; I45.6 Pre-excitation syndrome; J98.11 Atelectasis; E87.2 Acidosis; E83.51 Hypocalcemia; E87.6 Hypokalemia; W18.39XA Other fall on same level, initial encounter; Z72.0 Tobacco use
CPT/HCPCS: 12001; 70450; 71010; 72125; 80048; 80053; 80076; 80307; 81001; 82948; 83605; 85025; 85610; 85730; 87040; 90471; 90715; 93005; 96361; 96374; 97163; 99285; G0378; G8987; G8988; J0456; J0610; J0696; J3411; J7030; J7040; J7050; 80320

== ENCOUNTER 2016-07-13 12:40 | Emergency (ER) | payer OTHER ==
[~2016-07-13] VITALS: Ht 165.1 cm; Wt 70.0 kg
[~2016-07-13 12:40] MED LIST: FOLI5CAP PO; VITA100T2 PO
[2016-07-13 12:42] VITALS: BP 161/73; PULSE 82; RESP 16; TEMP 97.6; O2SAT 97
--- NOTE | 2016-07-13 14:12 | PD ---
HPI Chief Complaint: Wound/Suture/Staple Re-Check Time Seen by Provider: 14:12 Travel History International Travel<30 days: No Contact w/Intl Traveler<30days: No Traveled to known affect area: No History of Present Illness HPI 61-year-old male presents to the emergency department requesting leia to be removed from his left scalp. They've been there for 10 days. He denies fever, chills, nausea, vomiting. Has no other medical complaints. No known allergies. No other modifying factors or associated signs and symptoms. PFSH Past Medical History Arthritis: No Asthma: No Autoimmune Disease: No Blood Disorders: No Cancer: No Cardiovascular Problems: Yes (WPW and SVT by records) Chemotherapy: No Congestive Heart Failure: No COPD: No Cerebrovascular Accident: No Endocrine: No GERD: No Glaucoma: No Genitourinary: No Hepatitis: No Hiatal Hernia: No Hypertension: No Kidney Stones: No Musculoskeletal: Yes (pt has "mild cerebral palsy in right leg".) Neurologic: No Psychiatric: No Reproductive: No Respiratory: No Myocardial Infarction: No Radiation Therapy: No Renal Failure: No Seizures: No Sleep Apnea: No Thyroid Disease: No Ulcer: No Past Surgical History AICD: No Body Medical Devices: RIGHT LENS REPLACEMENT. RIGHT HIP REPLACEMENT Genitourinary Surgery: No Pacemaker: No Social History Alcohol Use: Yes (everyday) Tobacco Use: Yes Substance Use: Yes Allergies-Medications (Allergen,Severity, Reaction): Coded Allergies: No Known Allergies (Verified Allergy, Unknown, 05/02/03) Reported Meds & Prescriptions Reported Meds & Active Scripts Active Folic Acid 5 Mg Cap 1 Mg PO DAILY Vitamin B-1 (Thiamine HCl) 100 Mg Tab 100 Mg PO DAILY Review of Systems Except as stated in HPI: all other systems reviewed are Neg Physical Exam Narrative GENERAL: Well-nourished, well-developed elderly, male patient, in no acute distress SKIN: Warm and dry. Mid left scalp with a laceration that is well approximated and with leia intact; without erythema, edema, drainage. No signs of infection. HEAD: Atraumatic. Normocephalic. EYES: Pupils equal and round. No scleral icterus. No injection or drainage. ENT: Mucosa pink and moist. Airway patent. NECK: Trachea midline. CARDIOVASCULAR: Regular rate. RESPIRATORY: No accessory muscle use. GASTROINTESTINAL: Rounded. MUSCULOSKELETAL: No obvious deformities. No clubbing. No cyanosis. No edema. NEUROLOGICAL: Awake and alert. Oriented 3. No obvious cranial nerve deficits. Motor grossly within normal limits. Normal speech. PSYCHIATRIC: Appropriate mood and affect; insight and judgment normal. Data Data Last Documented VS Vital Signs Date Time Temp Pulse Resp B/P Pulse Ox O2 Delivery O2 Flow Rate FiO2 07/13/16 12:42 97.6 82 16 161/73 97 Room Air MDM Medical Decision Making Medical Screen Exam Complete: Yes Emergency Medical Condition: Yes Medical Record Reviewed: Yes Differential Diagnosis Staple removal, wound recheck, medical clearance Narrative Course 61-year-old male presents for staple removal to his left scalp. They have been there for 10 days. Patient is afebrile nontoxic appearing. The wound is well approximated and without signs of infection. [place] removed. Patient tolerated well. Patient verbalizes understanding and agreement with treatment plan. Patient is medically cleared and stable for discharge. Discussed reasons to return to the emergency department. Instructed patient to follow up with primary care provider. Patient agrees with treatment plan. The patients vital signs are stable and the patient is stable for outpatient follow-up and treatment. Patient discharged home, stable and in no acute distress. Diagnosis Primary Impression: Encounter for staple removal Referrals: Primary Care Physician Patient Instructions: General Instructions Additional Instructions: Follow-up with primary care provider Return to the emergency department immediately with worsening of symptoms Med/Other Pt SpecificInfo: No Change to Meds, No Meds Exist/No RX given Disposition: 01 DISCHARGE HOME Condition: Stable Nica Briscoe Jul 13, 2016 14:12
== END 2016-07-13 14:26 | disposition home or self-care (01) ==
LOC: NETRI 12:40
DX: Z48.02 Encounter for removal of sutures (principal); F10.10 Alcohol abuse, uncomplicated
CPT/HCPCS: 99281